=== PATIENT | female | born 1995 | race Caucasian/White ===

== ENCOUNTER 2017-09-28 19:13 | Emergency (ER) | payer OTHER ==
[2017-09-28] MEDS: IBUPROFEN 600 MG TAB PO (20:22)
[2017-09-28] MEDS: LORAZEPAM 1 MG TAB PO (20:22)
== END 2017-09-28 21:42 | disposition home or self-care (01) ==
LOC: FTE 19:13
DX: R07.89 Other chest pain (principal)
CPT/HCPCS: 71046; 81025; 99283-25